=== PATIENT | female | born 1970 | race Caucasian/White ===

== ENCOUNTER 2024-05-09 00:22 | Day surgery (SDC) | payer OTHER, SELFPAY ==
[2024-04-26 13:14] VITALS: BMI 36.6
--- OUTSIDE RECORDS SUMMARY | 2024-05-09 00:24 | XMS_ITS | Encounter Summary ---
Author Organization [facility] Address [facility] [place] [address] Care Team Providers Care Family Day Care Worker Name Role Phone None, Provider Primary Care Provider Anetaa ble Encounter Details Date Type Department Care Team (Late st Contact Info) Description 12/27/2016 [place] [address] , Generic Conversion, Social History Tobacco Use Types Packs/Day Years Used Date Smoking Tobacco: Never Assessed Comments Unknown Sex and Gender Information Value Date Recorded Sex Assigned at Not on file Legal Sex Female 8:05 PM CDT Gender Identity Not on file Sexual Orientation Not on file documented as of this encounter Plan of Treatment Not on file documented as of this encounter Visit Diagnoses Not on filedocumented in this encounter Care Teams Family Day Care Worker Relationship Specialty Start Date End Date None, Provider, PCP - General UNKNOWN PHYSICIAN SPECIALTY 02/12/23 documented as of this encounter
--- OUTSIDE RECORDS SUMMARY | 2024-05-09 00:24 | XMS_ITS | Clinical Summary ---
Author Organization [facility] Address [facility] [place] [address] Care Team Providers Care Alumni Relations Coordinator Name Role Phone None, Provider MD Primary Care Provider Unavaila ble Allergies No known active allergies Medications buPROPion XL (WELLBUTRIN XL) 300 MG 24 hr tablet Take 1 tablet (300 mg total) by mouth every morning. 11/18/2022 Active hydroCHLOROthia zide (MICROZIDE) 12.5 MG tablet Take 1 tablet (12.5 mg total) by mouth daily as needed. 01/28/2023 Active fluticasone propionate (FLONASE) 50 MCG/ACT nasal sprayIndication s:Acute non-recurrent maxillary sinusitis 1 spray by Each Nostril route 2 (two) times daily. 15.8 mL 02/12/2023 Active Immunizations Name Administration Dates Next Due Tdap (Boostrix) 09/02/2021 Social History Tobacco Use Types Packs/Day Years Used Date Smoking Tobacco: Never Smokeless Tobacco: Never Tobacco Cessation:Counseling Given: No Comments Unknown Sex and Gender Information Value Date Recorded Sex Assigned at Not on file Legal Sex Female 8:05 PM CDT Gender Identity Not on file Sexual Orientation Not on file Last Filed Vital Signs Vital Sign Reading Time Taken Comments Blood Pressure 113/76 02/12/2023 2:18 PM PRODUCTION POSTING CLERK Pulse 79 02/12/2023 2:18 PM PRODUCTION POSTING CLERK Temperature 36.5 C (97.7 F) 02/12/2023 2:18 PM PRODUCTION POSTING CLERK Respiratory Rate 18 02/12/2023 2:18 PM PRODUCTION POSTING CLERK Oxygen Saturation 96% 02/12/2023 2:18 PM PRODUCTION POSTING CLERK Inhaled Oxygen Concentration - - Weight 94.7 kg (208 lb 12.8 oz) 02/12/2023 2:18 PM PRODUCTION POSTING CLERK Height 157.5 cm (5' 2 ) 02/12/2023 2:18 PM PRODUCTION POSTING CLERK Body Mass Index 38.19 02/12/2023 2:18 PM PRODUCTION POSTING CLERK Plan of Treatment Health Maintenance Due Date Last Done Comments Cervical Cancer Screening Pa p Smear (Age 30 to 64) Every 3 Years 1968 Colorectal Cancer Screening Colonoscopy (10 Years) 1968 Annual Physical 1971 PHQ-2 (Physician [place]) 1980 Hepatitis C 1986 Hepatitis B Vaccines (1 of 3 - 19+ 3-dose series) 1987 Cervical Cancer Screening Pa p with HPV Testing (Age 30 to 64) Every 5 Years 1998 Cervical Cancer Screening wi th HPV 1998 Mammogram Screening 2008 Zoster Vaccines (1 of 2) 2018 COVID-19 Vaccine (2023-2 5 season) 2023 04/13/2020, 03/16/2020 Influenza Adult (#1) 2023 12/01/2022, 12/02/2021, 12/03/2020 PHQ-2 (Physician [place]) 02/24/2024 DTaP, Tdap and Td Vaccines ( 2 - Td or Tdap) 09/03/2031 09/02/2021 Meningococcal B Vaccine Aged Out No l onger eligible based on patient's age to complete this topic Meningococcal Vaccine Aged Out No ginger darlin eligible based on patient's age to complete this topic Pneumococcal Vaccine: Pediatrics (0 to 5 Years) and At-Risk Patients (6 to 64 Years) Aged Out No longer eligible b ased on patient's age to complete this topic RSV Immunizations Under 20 Months Aged Out No longer eligible b ased on patient's age to complete this topic Insurance [facility] Care Teams Alumni Relations Coordinator Relationship Specialty Start Date End Date None, Provider, PCP - General UNKNOWN PHYSICIAN SPECIALTY 02/12/23
--- NOTE | 2024-05-09 07:14 | WPDANESEPPF ---
Anes - Initial Pre Proc Eval Procedure: Operation Date: 05/09/24 08:45 Proposed Procedures p Esophagogastroduodenoscopy & Colonoscopy - Yves Watkins MD Date/Time: 05/09/24 07:14 Surgeon: Yves Watkins MD Pre Op Diagnosis: Screening,Epigastric pain,abd pain Patient Data Age: 54 Gender: F Height: 1.57 m Weight: 91 kg Allergies Allergy/AdvReac Type Severity Reaction Status Date / Time No Known Allergies Allergy Verified 04/26/24 13:13 Home Medications ?Medication ?Instructions ?Recorded ?Confirmed ?Type bupropion HCl 300 mg 24 hr tablet, 300 mg PO QAM #90 tabs 02/25/24 04/26/24 Rx extended release (Wellbutrin XL) celecoxib 200 mg capsule 200 mg PO DAILY 03/14/24 04/26/24 History pantoprazole 20 mg tablet,delayed 20 mg PO QAM #90 tabs 03/14/24 04/26/24 Rx release Patient hx anesthesia problems: none Family hx anesthesia problems: none Results Review: All pre-operative results and documents have been reviewed as part of the pre-operative evaluation. [facility] Past Medical History Medical History Dyspepsia Anxiety and depression Other chronic pain Chronic headaches Weight gain Surgical History Surgical History Status post arthroscopic knee surgery History of arthroscopy of left knee (2016) History of left knee replacement 06/2024 History of total right knee replacement 06/2023 Tonsillectomy planned (~1980) Cholecystectomy planned (2009) H/O right knee surgery (~2015) H/O right knee surgery (~2014) Family History Family History Father Diabetes mellitus Hypertension Mother Heart disease Cerebrovascular accident Thyroid disorder Sibling Alcoholism Cancer Depression Other Family history of arthritis Social History Social History Social History: 03/14/24 very confident with medical forms Smoking status: Never smoker Alcohol intake: never Drinks per week: 1 Alcohol use details: wine/vodka spritzers Substance use: never Substance use type: does not use Do You Feel Safe in your Home?: Yes Lack of Transportation: No Lack of Food: Never True Current Housing: I Have Housing Concerned About Future Housing: No Difficulty Paying Gas/Electric Bills: No Difficulty Paying for Meds: No Currently Unemployed: No Education: Master's Degree or Higher Difficulty w/ Childcare or Family Care: No Living arrangements: with family Occupation/Education: occupation 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 [employer] Gender identity (if verbalized by the patient): Female Sexual Orientation (if Verbalized by the Patient): Straight or Heterosexual Spiritual care concerns: No Agree to blood products: Yes Anes - Eval Final PreProcedure Day of Procedure 05/09/24 07:14 Patient weight: obese Heart: regular rate and rhythm Lungs: clear to auscultation Airway: Mallampati scale class II Neurological: alert and oriented Last oral intake: >/= 8 hours ASA classification: II Emergent: no Anesthetic plan: proceed Anesthesia type and monitoring: general GIVS and standard monitoring Results Review: All pre-operative results and documents have been reviewed as part of the pre-operative evaluation. Informed Consent: The patient's anesthetic plan and its attendant risks and benefits were discussed with the patient/family/POA. Questions were solicited and answers provided to the satisfaction of the patient/family/POA.
[2024-05-09 07:20] VITALS: BP 151/71; PULSE 70; RESP 16; TEMP 36.4; O2SAT 100; BMI 38.5
[2024-05-09] MEDS: LACTATED RINGERS 1,000 ML 150 ML IV CONT (07:40)
--- NOTE | 2024-05-09 08:05 | PM.IMHP ---
H&P: HPI History of Present Illness Date/Time: 05/09/24 08:05 Chief Complaint: chest pain episodes -screening colonoscopy Narrative: this patient has been experiencing intermittent episodes of pressure-like chest pain for the past 6 months. She denies heartburn, regurgitation, nausea, vomiting or dysphagia. Cardiovascular disease has been ruled out and she is referred for EGD. In addition, This is the patient's first colonoscopy. There are no GI symptoms and there is no family history of colorectal cancer. Review of Systems Review of Systems: All systems reviewed & are unremarkable except as noted in HPI and below PMFSH Past Medical History Medical History Dyspepsia Anxiety and depression Other chronic pain Chronic headaches Weight gain Surgical History Surgical History Status post arthroscopic knee surgery History of arthroscopy of left knee (2016) History of left knee replacement 06/2024 History of total right knee replacement 06/2023 Tonsillectomy planned (~1980) Cholecystectomy planned (2009) H/O right knee surgery (~2015) H/O right knee surgery (~2014) Family History Family History Father Diabetes mellitus Hypertension Mother Heart disease Cerebrovascular accident Thyroid disorder Sibling Alcoholism Cancer Depression Other Family history of arthritis Social History Social History Social History: 03/14/24 very confident with medical forms Smoking status: Never smoker Alcohol intake: never Drinks per week: 1 Alcohol use details: wine/vodka spritzers Substance use: never Substance use type: does not use Do You Feel Safe in your Home?: Yes Lack of Transportation: No Lack of Food: Never True Current Housing: I Have Housing Concerned About Future Housing: No Difficulty Paying Gas/Electric Bills: No Difficulty Paying for Meds: No Currently Unemployed: No Education: Master's Degree or Higher Difficulty w/ Childcare or Family Care: No Living arrangements: with family Occupation/Education: occupation 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 Gender identity (if verbalized by the patient): Female Sexual Orientation (if Verbalized by the Patient): Straight or Heterosexual Spiritual care concerns: No Agree to blood products: Yes Meds Home Medications and Allergies Home Medications ?Medication ?Instructions ?Recorded ?Confirmed ?Type bupropion HCl 300 mg 24 hr tablet, 300 mg PO QAM #90 tabs 02/25/24 05/09/24 Rx extended release (Wellbutrin XL) celecoxib 200 mg capsule 200 mg PO DAILY 03/14/24 05/09/24 History pantoprazole 20 mg tablet,delayed 20 mg PO QAM #90 tabs 03/14/24 05/09/24 Rx release Allergies Allergy/AdvReac Type Severity Reaction Status Date / Time No Known Allergies Allergy Verified 05/09/24 07:19 Vital Signs Vital Signs - 24 hr 05/09/24 07:20 Temperature 97.6 F Pulse Rate 70 Respiratory Rate 16 Blood Pressure 151/71 H Pulse Oximetry 100 Oxygen Delivery Room Air Exam Const: General: cooperative and healthy appearing Resp: Effort & Inspection: normal respiratory effort and able to speak in complete sentences Auscultation: clear to auscultation bilaterally Cardio: Rate: regular rate Rhythm: regular rhythm GI: Inspection: normal to inspection GI Palp: No No hepatosplenomegaly present Auscultation: normal bowel sounds Rectal Exam: deferred Skin: General skin exam: normal color Psych: Appearance: grossly normal Mental Status: mental status grossly normal Assessment and Plan Assessment and plan (1) Encounter for screening colonoscopy: Code(s): Z12.11 - Encounter for screening for malignant neoplasm of colon Status: Acute Assessment and Plan: The patient is deemed a good candidate for the procedures. Consent signed. Will proceed. (2) Dyspepsia: Code(s): R10.13 - Epigastric pain Status: Acute
--- NOTE | 2024-05-09 08:21 | SUR.OPER ---
EGD [id number]. Colonoscopy start time 821.
[2024-05-09 08:35] VITALS: BP 129/71; PULSE 84; RESP 16; O2SAT 100
[2024-05-09 08:45] VITALS: BP 135/72; PULSE 76; RESP 12; O2SAT 100
[2024-05-09 08:55] VITALS: BP 146/82; PULSE 84; RESP 18; O2SAT 100
== END 2024-05-09 09:16 | disposition home or self-care (01) ==
PROVIDERS: PCP Physician Assistant Medical; Referring Provider Physician Assistant Medical; Visit Provider Internal Medicine Gastroenterology
PROC: 0DJ08ZZ Inspection of Upper Intestinal Tract, Via Natural or Artificial Opening Endoscopic (ICD-10-PCS; CPT 45378; principal; 2024-05-09 08:45)
DX: Z12.11 Encounter for screening for malignant neoplasm of colon (principal); K57.30 Diverticulosis of large intestine without perforation or abscess without bleeding; K44.9 Diaphragmatic hernia without obstruction or gangrene; K31.89 Other diseases of stomach and duodenum; K21.9 Gastro-esophageal reflux disease without esophagitis; F41.8 Other specified anxiety disorders; G89.29 Other chronic pain; R51.9 Headache, unspecified; E66.9 Obesity, unspecified; Z68.38 Body mass index [BMI] 38.0-38.9, adult; Z98.890 Other specified postprocedural states; Z80.9 Family history of malignant neoplasm, unspecified; Z82.49 Family history of ischemic heart disease and other diseases of the circulatory system
CPT/HCPCS: 43239; 45378; 88305; J2704; J7120